=== PATIENT | female | born 1950 | race Caucasian/White ===

== ENCOUNTER 2019-03-05 14:12 | Emergency (ER) | payer MEDICARE, BC ==
--- NOTE | 2019-03-05 14:50 | EDM.PDOC ---
ED HPI GENERAL MEDICAL PROBLEM - General Chief Complaint: Gastrointestinal Problem Stated Complaint: NAUSEA/DIZZY AND SWEATING Time Seen by Provider: 03/05/19 14:25 Source of Information: Reports: Patient, Family (spouse) History Limitations: Reports: No Limitations - History of Present Illness INITIAL COMMENTS - FREE TEXT/NARRATIVE: 68-year-old female presents to the ED with a general sense of not feeling well. Seems to have a combination of problems. She has been off her Arimidex medication for breast cancer for about a month and a half now. She was to start a new medication but has yet to start it. Getting flushes and diaphoresis and feeling dizzy lightheaded at times. This is been going on and off for the last 2 -3 weeks or more. Also associated feeling of food intolerance with bloating indigestion and more belching etc. She knows that she has a polyp and a gallstone in her gallbladder from ultrasound done a couple years ago. Diarrhea. She also gives a history of working fairly hard this last week in her basement by [employer] ripping up a carpet on the floor. In and out of a crawl space and developing similar symptoms during vigorous activity with a band pressure sometimes around her left mid biceps her arm. She is not clear whether or not she got relief by stopping her activities. Past she has had a calcium scoring test with CT and scored high and about 8 years ago had an angiogram was told she had disease in her left anterior descending and right coronary but not bad enough to stent. Therefore she is concerned that she may have underlying heart disease. By history she most likely has gallbladder related illness as well. She also may well be having some side effects from withdrawal from Arimidex. Her medications have been changed. His abdominal surgeries that of an appendectomy. Left breast cancer was treated with a lumpectomy and radiation and chemotherapy. She said certain foods such as eating eggs or fatty food such as sausage will make her nauseated and have increased abdominal discomfort. Onset: Other (Symptoms off and on for last several weeks.) Duration: Week(s):, Intermittent, Waxing/Waning Location: Reports: Generalized Severity: Moderate Improves with: Reports: None Worsens with: Reports: Other (Intermittent problems with feeling dizzy lightheaded and breaking out in a sweat.) Context: Reports: Other. Denies: Activity, Exercise, Lifting, Sick Contact, Trauma Associated Symptoms: Reports: Diaphoresis, Malaise, Shortness of Breath, Weakness. Denies: Confusion, Chest Pain, Cough, cough w sputum, Fever/Chills, Headaches, Loss of Appetite, Nausea/Vomiting, Rash, Seizure, Syncope (Wraps mild.), Other Treatments INTERNAL MEDICINE NURSE PRACTITIONER: Reports: Other (see below) (No new medications.) - Related Data Allergies Allergy/AdvReac Type Severity Reaction Status Date / Time No Known Allergies Allergy Verified 03/05/19 14:25 Home Meds: Home Meds Aspirin 162 mg PO DAILY 03/05/19 [History] Levothyroxine Sodium [Synthroid] 75 mcg PO ACBREAKFAST #90 tab 03/05/19 [Rx] Levothyroxine [Synthroid] 50 mcg PO DAILY 03/05/19 [History] Losartan [Cozaar] 50 mg PO DAILY 03/05/19 [History] Metoprolol Tartrate 50 mg PO DAILY 03/05/19 [History] Past Medical History Cardiovascular History: Reports: CAD (Diagnosed by angiography 8 years ago and told she had disease in both right coronary left anterior descending but not bad enough to require stenting.), High Cholesterol, Hypertension Gastrointestinal History: Reports: Cholelithiasis (Also told she has a polyp in her gallbladder.) Oncologic (Cancer) History: Reports: Breast (Breast cancer diagnosed in 2018 treated by lumpectomy and radiation and chemotherapy. Has been on Demadex for about 2 years. She's been off the month of February she was going to change to a different medication but has yet to start it.) Social & Family History - Living Situation & Occupation Living situation: Reports: Occupation: Retired ED ROS GENERAL - Review of Systems Review Of Systems: See Below Constitutional: Reports: Chills, Malaise, Weakness, Fatigue, Diaphoresis. Denies: Fever, Night Sweats HEENT: Reports: No Symptoms. Denies: Vertigo Respiratory: Reports: Shortness of Breath. Denies: Wheezing, Pleuritic Chest Pain, Cough Cardiovascular: Reports: Blood Pressure Problem, Dyspnea on Exertion, Lightheadedness. Denies: Chest Pain, Claudication (Has had hypertension for 20 years.), Edema (At times.), Orthopnea, Palpitations (At times.) Endocrine: Reports: Fatigue GI/Abdominal: Reports: Other (Developing food intolerance particular to fatty foods with abdominal bloating pressure discomfort in her abdomen with increased bloating and belching. Diarrhea. This may be due to GALLBLADDER disease.) : Reports: No Symptoms Musculoskeletal: Reports: Joint Pain (Occasional pain in her joints from the Arimidex particularly lower extremities.) Skin: Reports: No Symptoms Neurological: Reports: No Symptoms Psychiatric: Reports: No Symptoms Hematologic/Lymphatic: Reports: No Symptoms Immunologic: Reports: No Symptoms ED EXAM, GENERAL - Physical Exam Exam: See Below Exam Limited By: No Limitations General Appearance: Alert, WD/WN, Anxious, Moderate Distress, Other (Quite tearful providing history. She was 36.2 heart rate 72 respiratory 22 and pulse oximetry is 98%. BP was 159/96 originally. In down to 131/58) Eye Exam: Bilateral Eye: Normal Inspection (No scleral icterus.) Head: Atraumatic, Normocephalic Neck: Normal Inspection, Supple, Non-Tender, Full Range of Motion. No: Lymphadenopathy (L), Lymphadenopathy (R) Respiratory/Chest: Lungs Clear, Normal Breath Sounds (Mild tachypnea from anxiety.), No Accessory Muscle Use, Chest Non-Tender, Respiratory Distress, Other (Evidence of previous left breast surgery.) Cardiovascular: Normal Peripheral Pulses, Regular Rate, Rhythm, No Edema, No Gallop, No Murmur, No Rub Peripheral Pulses: 2+: Posterior Tibial (L), Posterior Tibial (R), Dorsalis Pedis (L), Dorsalis Pedis (R) GI/Abdominal: Normal Bowel Sounds, Soft, Non-Tender, No Organomegaly, No Mass, Pelvis Stable, Distended (Appendectomy scar well healed. Abdomen distended and mildly tympanitic to percussion throughout.), Other. No: Guarding, Rigid, Rebound Back Exam: Normal Inspection, Full Range of Motion. No: CVA Tenderness (L), CVA Tenderness (R) Extremities: Normal Inspection, Normal Range of Motion, Non-Tender, No Pedal Edema Neurological: Alert, Oriented, CN II-XII Intact, Normal Cognition, No Motor/ Sensory Deficits Psychiatric: Anxious Skin Exam: Warm, Dry, Intact, Normal Color, No Rash EKG INTERPRETATION EKG Date: 03/05/19 Time: 14:50 Rhythm: NSR Rate (Beats/Min): 70 [place]: Normal P-Wave: Present QRS: Other (Initial poor R-wave progression with decreased voltage in the precordial leads. All R-wave in lead 1 is suggestive of left ventricular hypertrophy pattern.) ST-T: Other (There is significant artifact in aVF and in the long lead to suggesting some PJCs and a regular baseline. Signs of acute ischemia) QT: Prolonged (Minimally prolonged) EKG Interpretation Comments: Abnormal ECG Course - Vital Signs Last Recorded V/S: Last Vital Signs Temp 36.2 C 03/05/19 14:20 Pulse 72 03/05/19 14:20 Resp 22 H 03/05/19 14:20 BP 159/96 H 03/05/19 14:20 Pulse Ox 98 03/05/19 14:20 Orthostatic Blood Pressure [ 148/83 Standing] Orthostatic Blood Pressure [ 139/83 Sitting] Orthostatic Blood Pressure [ 141/77 Supine] - Orders/Labs/Meds Orders: Active Orders 24 hr Category Date Time Status EKG Documentation Completion [RC] STAT Care 03/05/19 14:36 Active Orthostatic Vital Signs [RC] ASDIRECTED Care 03/05/19 14:37 Active Labs: Laboratory Tests 03/05/19 03/05/19 03/05/19 Range/Units 14:51 14:51 14:51 WBC 8.07 (3.98-10.04) K/mm3 RBC 4.70 (3.98-5.22) M/mm3 Hgb 13.2 (11.2-15.7) gm/dl Hct 42.5 (34.1-44.9) % MCV 90.4 (79.4-94.8) fl MCH 28.1 (25.6-32.2) pg MCHC 31.1 L (32.2-35.5) g/dl RDW Std Deviation 49.5 H (36.4-46.3) fL Plt Count 356 (182-369) K/mm3 MPV 9.9 (9.4-12.3) fl Neut % (Auto) 63.9 (34.0-71.1) % Lymph % (Auto) 22.7 (19.3-51.7) % [place] % (Auto) 9.4 (4.7-12.5) % Eos % (Auto) 3.5 (0.7-5.8) Baso % (Auto) 0.4 (0.1-1.2) % Neut # (Auto) 5.16 (1.56-6.13) K/mm3 Lymph # (Auto) 1.83 (1.18-3.74) K/mm3 [place] # (Auto) 0.76 H (0.24-0.36) K/mm3 Eos # (Auto) 0.28 (0.04-0.36) K/mm3 Baso # (Auto) 0.03 (0.01-0.08) K/mm3 ESR 44 H (0-20) mm/hr Sodium 138 (136-145) mEq/L Potassium 3.5 (3.5-5.1) mEq/L Chloride 102 (98-107) mEq/L Carbon Dioxide 27 (21-32) mEq/L Anion Gap 12.5 (5-15) BUN 9 (7-18) mg/dL Creatinine 1.0 (0.55-1.02) mg/dL Est Cr Clr Drug Dosing 41.99 mL/min Estimated GFR (MDRD) 55 (>60) mL/min BUN/Creatinine Ratio 9.0 L (14-18) Glucose 131 H (80-115) mg/dL Calcium 9.4 (8.5-10.1) mg/dL Magnesium 2.2 (1.8-2.4) mg/dl Total Bilirubin 0.2 (0.2-1.0) mg/dL AST 19 (15-37) U/L ALT 32 (14-59) U/L Alkaline Phosphatase 125 H (46-116) U/L Troponin I < 0.017 (0.00-0.056) ng/mL C-Reactive Protein 0.5 (<1.0) mg/dL NT-Pro-B Natriuret Pep (0-125) pg/mL Total Protein 8.6 H (6.4-8.2) g/dl Albumin 3.8 (3.4-5.0) g/dl Globulin 4.8 gm/dL Albumin/Globulin Ratio 0.8 L (1-2) Lipase 138 (73-393) U/L TSH 3rd Generation (0.358-3.74) uIU/mL Urine Color (Yellow) Urine Appearance (Clear) Urine pH (5.0-8.0) Ur Specific [place] (1.005-1.030) Urine Protein (Negative) Urine Glucose (UA) (Negative) Urine Ketones (Negative) Urine Occult Blood (Negative) Urine Nitrite (Negative) Urine Bilirubin (Negative) Urine Urobilinogen (0.2-1.0) Ur Leukocyte Esterase (Negative) Urine RBC (0-5) /hpf Urine WBC (0-5) /hpf Ur Squamous Epith Cells (0-5) /hpf Urine Bacteria (FEW) /hpf Urine Mucus (FEW) /hpf 03/05/19 03/05/19 03/05/19 Range/Units 14:51 14:51 16:16 WBC (3.98-10.04) K/mm3 RBC (3.98-5.22) M/mm3 Hgb (11.2-15.7) gm/dl Hct (34.1-44.9) % MCV (79.4-94.8) fl MCH (25.6-32.2) pg MCHC (32.2-35.5) g/dl RDW Std Deviation (36.4-46.3) fL Plt Count (182-369) K/mm3 MPV (9.4-12.3) fl Neut % (Auto) (34.0-71.1) % Lymph % (Auto) (19.3-51.7) % [place] % (Auto) (4.7-12.5) % Eos % (Auto) (0.7-5.8) Baso % (Auto) (0.1-1.2) % Neut # (Auto) (1.56-6.13) K/mm3 Lymph # (Auto) (1.18-3.74) K/mm3 [place] # (Auto) (0.24-0.36) K/mm3 Eos # (Auto) (0.04-0.36) K/mm3 Baso # (Auto) (0.01-0.08) K/mm3 ESR (0-20) mm/hr Sodium (136-145) mEq/L Potassium (3.5-5.1) mEq/L Chloride (98-107) mEq/L Carbon Dioxide (21-32) mEq/L Anion Gap (5-15) BUN (7-18) mg/dL Creatinine (0.55-1.02) mg/dL Est Cr Clr Drug Dosing mL/min Estimated GFR (MDRD) (>60) mL/min BUN/Creatinine Ratio (14-18) Glucose (80-115) mg/dL Calcium (8.5-10.1) mg/dL Magnesium (1.8-2.4) mg/dl Total Bilirubin (0.2-1.0) mg/dL AST (15-37) U/L ALT (14-59) U/L Alkaline Phosphatase (46-116) U/L Troponin I (0.00-0.056) ng/mL C-Reactive Protein (<1.0) mg/dL NT-Pro-B Natriuret Pep 21 (0-125) pg/mL Total Protein (6.4-8.2) g/dl Albumin (3.4-5.0) g/dl Globulin gm/dL Albumin/Globulin Ratio (1-2) Lipase (73-393) U/L TSH 3rd Generation 3.985 H (0.358-3.74) uIU/mL Urine Color Yellow (Yellow) Urine Appearance Clear (Clear) Urine pH 6.0 (5.0-8.0) Ur Specific [place] 1.020 (1.005-1.030) Urine Protein Negative (Negative) Urine Glucose (UA) Negative (Negative) Urine Ketones Negative (Negative) Urine Occult Blood Negative (Negative) Urine Nitrite Negative (Negative) Urine Bilirubin Negative (Negative) Urine Urobilinogen 0.2 (0.2-1.0) Ur Leukocyte Esterase Negative (Negative) Urine RBC 0-5 (0-5) /hpf Urine WBC 0-5 (0-5) /hpf Ur Squamous Epith Cells 0-5 (0-5) /hpf Urine Bacteria Few (FEW) /hpf Urine Mucus Not seen (FEW) /hpf - Radiology Interpretation Free Text/Narrative:: 68-year-old female who is quite anxious presents to the ED with a complex history. She reports recurrent bouts of dizziness lightheadedness and diaphoresis associate with bouts of nausea abdominal wall and belching. No she has gallbladder disease as she is told she's had a stone and a polyp in her gallbladder previous ultrasound. It's never really bothered her much but she identifies particularly food intolerance to fatty food such as egg and sausage. She has no diarrhea or dumping syndrome. Secondly she indicates that she developed shortness of breath and diaphoresis while working fairly hard this last week and then a band like pressure around her left arm that was intermittent on a couple of occasions. About 8 years ago she had a CT scan of her heart which revealed an increased calcium score and she went on to have an angiogram which showed disease in her right coronary artery and left anterior descending but not bad enough to require stenting. She has chronic hypertension. She has no known diabetes. We have a patient who develops signs and symptoms of food intolerance and known gallbladder disease. Also she seems to present with stable angina pectoris on exertion. Viki Moni compounding factor is that she has primary left-sided breast cancer treated with lumpectomy radiation and a REM index therapy for the last 2 years. She has gone off this medication over the last month and plans to start a different surgeon js but is yet to start it. Possibly she has withdrawing from the Arimidex. Examination reveals reveals no obvious abnormalities. Plan I will have a gallbladder ultrasound performed since she last ate about 9:30 this morning. I will book her for an ECG stress test as an outpatient. Today she will have routine labs and a chest x-ray and ECG performed. - Re-Assessments/Exams Free Text/Narrative Re-Assessment/Exam: 03/05/19 16:13: Chest x-ray reveals lung markings are slightly increased within the left base. Atelectasis within the right midlung is also seen. Lungs are otherwise clear. Slight tortuous thoracic aorta appreciated. I suspect the lung markings are slightly increased within the left base along due to left breast radiation therapy in the past. 03/05/19 16:33 Ultrasound of the gallbladder does not reveal any gallstones or polyps at this time. There is no evidence of any ductal dilatation in the liver. The common bile duct appears to be normal in size. The gallbladder does not show any significant wall thickening to suggest chronic cholecystitis. The right kidney also appears to be within normal limits and visualized portions of the pancreas appear to be normal. 03/05/19 16:37 White count is 8.07 with a normal differential. Hemoglobin is 13.2 with hematocrit of 42.5. Platelet count is 356,000. Sedimentation rate is 44. Sodium 138 with potassium of 3.5. Chloride is 102 with a bicarbonate of 27. Anion gap is 12.5 BUN is 9. Estimated GFR is 55. Glucose is elevated at 131. Calcium is 9.4. Magnesium is 2.2. Liver function is normal. Alk phosphatase is 125. Troponin I is less than 0.017. C-reactive protein is 0.5. BNP is 21. Total protein is elevated at 8.6. Albumin fraction is 3.8. Globulin is 4.8 138. TSH is 3.985 which is very slightly elevated. 03/05/19 17:00: Spoke with the patient and her . The plan will be to have her book for a outpatient HIDA scan to see whether or not her gallbladder is functioning or not. Many of her symptoms are suggestive of this. She also has some suggestion of dyspepsia and could be possibly related to a hiatal hernia. We'll also book be booked for a Cardiolite stress test to rule out coronary artery disease since she had left arm pain on exertion with dizziness and mild nauseous at the same time. Her study director is Dr. Mirza at [facility] in [place]. She also sees Dr. Yariel Taylor further problems results of the studies will be sent to those physicians. He did increase her thyroid supplement Synthroid from 50 g to 75 g daily due to subclinical hypothyroidism with a TSH of 3.98. This rechecked in about 2 months time Departure - Departure Time of Disposition: 16:57 Disposition: Home, Self-Care 01 Condition: Fair Clinical Impression: Dyspepsia Atherosclerosis of coronary artery with stable angina pectoris Qualifiers: Coronary Disease-Associated Artery/Lesion type: [place] artery [place] vs. transplanted heart: [place] heart Qualified Code(s): I25.118 - Atherosclerotic heart disease of [place] coronary artery with other forms of angina pectoris - Discharge Information *PRESCRIPTION DRUG MONITORING PROGRAM REVIEWED*: Not Applicable *COPY OF PRESCRIPTION DRUG MONITORING REPORT IN PATIENT HAO: Not Applicable Prescriptions: Levothyroxine Sodium [Synthroid] 75 mcg PO ACBREAKFAST #90 tab Referrals: Loki Taylor MD [Primary Care Provider] - Forms: ED Department Discharge Additional Instructions: Evaluation in the emergency room today in regards to a history that is suggestive of stable angina pectoris. With heavy exertion you appreciated some shortness of breath some dizziness and some pressure and your left arm that could suggest underlying coronary disease. You had an angiogram in 2014 which revealed some mild disease in the right coronary artery and left anterior descending. I therefore think it's prudent to pursue a Cardiolite ECG stress test and I will have the respiratory therapy department call you next week to arrange an appointment for this test here in the hospital. Second problem is dyspepsia which means nonspecific bloating nausea and abdominal upset particularly aggravated by fatty foods. This it's in itself is suggestive of underlying gallbladder disease. Gallbladder ultrasound today negative for any stones or obvious sludge. Since the history is highly suggestive of mild non- functioning gallbladder I will have x-ray department call you to arrange a HIDA scan of the gallbladder to see if it is functioning normally or not. The only thing that we identified in your blood tests was that you're subclinically hypothyroid with a TSH of 4. You not quite getting enough thyroid supplement and I would suggest increasing your thyroid hormone supplement from 50 g a day to 75 g daily. Should be checked in about 2 months time. Copies of your Cardiolite stress test will be sent to and to Dr Yariel Taylor. Sepsis Event Note - Evaluation Sepsis Screening Result: No Definite Risk - Focused Exam Vital Signs: Vital Signs Temp Pulse Resp BP Pulse Ox 03/05/19 14:20 36.2 C 72 22 H 159/96 H 98 Date Exam was Performed: 03/05/19 Time Exam was Performed: 17:10 - My Orders Last 24 Hours: My Active Orders 03/05/19 14:36 EKG Documentation Completion [RC] STAT 03/05/19 14:37 Orthostatic Vital Signs [RC] ASDIRECTED - Assessment/Plan Last 24 Hours: My Active Orders 03/05/19 14:36 EKG Documentation Completion [RC] STAT 03/05/19 14:37 Orthostatic Vital Signs [RC] ASDIRECTED
--- NOTE | 2019-03-05 15:13 | CR ---
Chest: Portable view of the chest was obtained. Comparison: No prior chest x-ray. Lung markings are slightly increased within the left base. Minimal atelectasis within the right midlung is seen. Lungs otherwise are clear. Heart size is normal. Tortuous thoracic aorta is seen. Bony structures are grossly intact. Impression: 1. Lung markings are slightly increased within the left base. Difficult to exclude early pneumonia if patient has infectious symptoms. 2. Mild right midlung atelectasis. Diagnostic code #3 Study was dictated in [place] Standard Time
--- NOTE | 2019-03-05 16:18 | US ---
Limited abdominal ultrasound: Multiple real-time images of the upper right abdomen were obtained. Liver shows no focal parenchymal abnormality. Visualized portions of the pancreas are within normal limits. Gallbladder shows no shadowing gallstones. No gallbladder wall thickening or biliary duct dilatation is seen. Right kidney shows no hydronephrosis or mass. Right kidney length is 10.4 cm. Inferior vena cava is patent. Portal vein shows normal hepatopedal flow. Impression: 1. No abnormality is appreciated on right upper quadrant abdominal ultrasound exam. Diagnostic code #1 Study was dictated in [place] Standard Time
== END 2019-03-05 17:26 | disposition home or self-care (01) ==
LOC: JD.ED 14:12
DX: I25.118 Atherosclerotic heart disease of native coronary artery with other forms of angina pectoris (principal); R10.13 Epigastric pain; I10 Essential (primary) hypertension; Z79.82 Long term (current) use of aspirin; Z79.899 Other long term (current) drug therapy; Z85.3 Personal history of malignant neoplasm of breast; R06.02 Shortness of breath
CPT/HCPCS: 36415; 71045; 71045-26; 76705; 76705-26; 80053; 81001; 83690; 83735; 83880; 84155; 84165; 84443; 84484; 85025; 85652; 86140; 93005; 93010; 99284; 99285-25